=== PATIENT | female | born 1955 | race Caucasian/White ===

== ENCOUNTER 2016-09-28 14:38 | Inpatient (IN) | payer OTHER ==
[~2016-09-28] VITALS: Ht 154.9 cm; Wt 97.5 kg
[~2016-09-28 14:38] MED LIST: CLONAZEPAM1 M1 PO; DICLOFENAC50 MG PO; EFFEXOR XR150 M1 PO; FOL1 PO; LOP50 PO; METHOTREXATE2.5 PO; NEURONTIN600 M PO; NUVIGIL250 MG PO; PER5 PO; PRE3 PO; SAVELLA TITRATI PO; SOM350; ZOC20 PO
[2016-09-28 15:40] LABS: BASOPHIL % 0.7 % (0-2); PLATELET COUNT 283 x10^3mcL (130-400)
[2016-09-28 15:44] LABS: CALCIUM 8.7 mg/dL (8.5-10.1); CARBON DIOXIDE 30.8 mmol/L (21-32); CHLORIDE SERUM 106 mmol/L (98-107); CREATININE SERUM 0.9 mg/dL (0.6-1.0); GFR1 > 60 mL/min; GLUCOSE SERUM 112 mg/dL (74-106); SODIUM SERUM 142 mmol/L (136-145)
[2016-09-28 15:47] LABS: RED CELL DISTRIBUTION WIDTH 14.6 % (11.5-14.5)
[2016-09-28 15:50] LABS: ALKALINE PHOSPHATASE 134 U/L (46-116); ALT/SGPT 28 U/L (14-59); AST/SGOT 21 U/L (15-37); BILIRUBIN TOTAL 0.2 mg/dL (0.20-1.00); MAGNESIUM 1.9 mg/dL (1.8-2.4); TOTAL PROTEIN, SERUM 6.6 g/dL (6.4-8.2)
[2016-09-28 15:54] LABS: ALBUMIN 3.2 g/dL (3.4-5.0)
[2016-09-28 16:18] LABS: microscopic required? YES; urine erythrocyte TRACE (NEGATIVE)
[2016-09-28 16:27] LABS: AMPHETAMINE QUAL UR NONE DETECTED (NEG <=1000)
[2016-09-28] MEDS ORDERED: SEROQUEL100 MG PO (16:54)
[2016-09-28] MEDS ORDERED: SAVELLA50 M1 PO (16:55)
[2016-09-28] MEDS ORDERED: GOOD SENSE OMEP20 MG PO (16:57)
[2016-09-28] MEDS ORDERED: IBUPROFEN400 MG PO (16:59)
[2016-09-28] MEDS ORDERED: SYNTHROID0.05 MG PO (17:00)
[2016-09-28] MEDS ORDERED: ZANAFLEX4 MG PO (17:00)
[2016-09-28] MEDS ORDERED: AMBIEN10 MG PO (17:01)
[2016-09-28] MEDS ORDERED: VENTOLIN H0.09 MG/A1 INH (17:02)
[2016-09-28 17:35] LABS: FREE T4 0.78 ng/dL (0.76-1.46); FREE THYROXINE INDEX 2.3 ug/dL (1.4-4.5); T4(THYROXINE) 6.1 ug/dL (4.7-13.3)
[2016-09-28 17:36] LABS: T3 TOTAL 0.97 ng/mL
[2016-09-28 17:38] LABS: CHOLESTEROL/HDL RATIO 4.4
[2016-09-28] MEDS ORDERED: GABAPENTIN100 M2 (18:41)
[2016-09-28] MEDS ORDERED: PERCOCET1 TA5 (18:42)
[2016-09-28] MEDS ORDERED: PHARMASSURE FO0.4 MG (18:42)
[2016-09-28] MEDS ORDERED: CLONAZEPAM0.5 MG (18:42)
[2016-09-28 18:45] VITALS: BP 155/93
[2016-09-28 19:59] VITALS: BP 146/102
[2016-09-28 23:31] VITALS: BP 105/34
[2016-09-29 03:18] VITALS: BP 128/103
[2016-09-29 05:27] LABS: BASOPHIL % 0.7 % (0-2); PLATELET COUNT 247 x10^3mcL (130-400)
[2016-09-29 05:30] LABS: RED CELL DISTRIBUTION WIDTH 14.8 % (11.5-14.5)
[2016-09-29 06:08] LABS: CALCIUM 8.3 mg/dL (8.5-10.1); CARBON DIOXIDE 28.8 mmol/L (21-32); CHLORIDE SERUM 106 mmol/L (98-107); CREATININE SERUM 0.9 mg/dL (0.6-1.0); GFR1 > 60 mL/min; GLUCOSE SERUM 90 mg/dL (74-106); PHOSPHOROUS 3.4 mg/dL (2.5-4.9); POTASSIUM SERUM 3.7 mmol/L (3.5-5.1); SODIUM SERUM 142 mmol/L (136-145)
[2016-09-29 07:30] VITALS: BP 156/94
[2016-09-29 11:30] VITALS: BP 125/49
[2016-09-29 15:30] VITALS: BP 98/50
[2016-09-29 19:20] VITALS: BP 99/67
[2016-09-29 23:14] VITALS: BP 138/70
== END 2016-09-30 01:13 | disposition left against medical advice (07) | DRG 917 ==
LOC: ED 14:38 → DU 16:43 → ED 16:43 → IC 16:44
PROVIDERS: Emergency Medicine; ADMIT Family Medicine
DX: T42.4X2A Poisoning by benzodiazepines, intentional self-harm, initial encounter (principal); G92 Toxic encephalopathy; Z68.41 Body mass index [BMI] 40.0-44.9, adult; E11.65 Type 2 diabetes mellitus with hyperglycemia; I10 Essential (primary) hypertension; J44.9 Chronic obstructive pulmonary disease, unspecified; M06.9 Rheumatoid arthritis, unspecified; M79.7 Fibromyalgia; G89.4 Chronic pain syndrome; F32.9 Major depressive disorder, single episode, unspecified; F41.9 Anxiety disorder, unspecified; E03.9 Hypothyroidism, unspecified; E78.5 Hyperlipidemia, unspecified; E66.01 Morbid (severe) obesity due to excess calories; Z89.421 Acquired absence of other right toe(s); Z79.891 Long term (current) use of opiate analgesic; Z87.891 Personal history of nicotine dependence; Y92.009 Unspecified place in unspecified non-institutional (private) residence as the place of occurrence of the external cause; Z79.84 Long term (current) use of oral hypoglycemic drugs; Z79.1 Long term (current) use of non-steroidal anti-inflammatories (NSAID); Z91.81 History of falling; Z86.73 Personal history of transient ischemic attack (TIA), and cerebral infarction without residual deficits
CPT/HCPCS: 80307; 82962; 83880; 84439; G0480; J0696; J2270; J2405; J7030; Q0092

== ENCOUNTER 2017-08-04 07:21 | Emergency (ER) | payer OTHER ==
[~2017-08-04] VITALS: Ht 154.9 cm; Wt 98.9 kg
[~2017-08-04 07:21] MED LIST changes: +AMBIEN10 MG PO; +CLONAZEPAM0.5 MG; +GABAPENTIN100 M2; +GOOD SENSE OMEP20 MG PO; +IBUPROFEN400 MG PO; +PERCOCET1 TA5; +PHARMASSURE FO0.4 MG; +SAVELLA50 M1 PO; +SEROQUEL100 MG PO; +SYNTHROID0.05 MG PO; +VENTOLIN H0.09 MG/A1 INH; +ZANAFLEX4 MG PO
[2017-08-04 07:28] VITALS: BP 121/86; Ht 154.9 cm; Wt 98.9 kg
== END 2017-08-04 09:00 | disposition home or self-care (01) ==
LOC: ED 07:21
DX: S63.501A Unspecified sprain of right wrist, initial encounter (principal); Z86.73 Personal history of transient ischemic attack (TIA), and cerebral infarction without residual deficits; Z88.2 Allergy status to sulfonamides; W22.03XA Walked into furniture, initial encounter; Y93.89 Activity, other specified; Y92.89 Other specified places as the place of occurrence of the external cause; Y99.8 Other external cause status
CPT/HCPCS: A4570; Q0092

== ENCOUNTER 2017-10-09 16:31 | Emergency (ER) | payer OTHER ==
[~2017-10-09] VITALS: Ht 160 cm; Wt 97.1 kg
[2017-10-09 17:18] LABS: CALCIUM 8.4 mg/dL (8.5-10.1); CARBON DIOXIDE 33.7 mmol/L (21-32); CHLORIDE SERUM 104 mmol/L (98-107); CREATININE SERUM 0.9 mg/dL (0.6-1.0); GFR1 > 60 mL/min; GLUCOSE SERUM 91 mg/dL (74-106); POTASSIUM SERUM 3.7 mmol/L (3.5-5.1); SODIUM SERUM 141 mmol/L (136-145)
[2017-10-09 17:24] LABS: ALBUMIN 3.5 g/dL (3.4-5.0); ALKALINE PHOSPHATASE 137 U/L (46-116); ALT/SGPT 24 U/L (14-59); AST/SGOT 17 U/L (15-37); BILIRUBIN TOTAL 0.2 mg/dL (0.20-1.00); TOTAL PROTEIN, SERUM 7.1 g/dL (6.4-8.2)
[2017-10-09 17:26] LABS: BASOPHIL % 0.4 % (0-2); PLATELET COUNT 300 x10^3mcL (130-400)
[2017-10-09 17:28] LABS: AMPHETAMINE QUAL UR NONE DETECTED (NEG <=1000)
[2017-10-09 18:20] VITALS: BP 102/44
== END 2017-10-09 18:20 | disposition home or self-care (01) ==
LOC: ED 16:31
PROVIDERS: Emergency Medicine
DX: R51 Headache (principal); K21.9 Gastro-esophageal reflux disease without esophagitis; Z88.2 Allergy status to sulfonamides; Z88.8 Allergy status to other drugs, medicaments and biological substances
CPT/HCPCS: 36415; G0480; J1885

== ENCOUNTER 2019-03-30 10:39 | Observation (INO) | payer OTHER ==
[~2019-03-30] VITALS: Ht 154.9 cm; Wt 102.5 kg
[2019-03-30 11:01] VITALS: BP 130/83
[2019-03-30 12:59] VITALS: BP 130/83
[2019-03-30] MEDS ORDERED: CATAPRES0.1 MG PO (15:16)
[2019-03-30] MEDS ORDERED: FLUOXETINE40 MG PO (15:17)
[2019-03-30] MEDS ORDERED: PROAIR HFA8.5 GM IH (15:18)
[2019-03-30] MEDS ORDERED: FLOVENT DI100 MCG/A1 INH (15:18)
[2019-03-30 20:21] VITALS: BP 140/90
[2019-03-31 04:36] VITALS: BP 101/44
[2019-03-31 06:10] LABS: PLATELET COUNT 269 x10^3mcL (130-400)
[2019-03-31 06:18] LABS: CALCIUM 7.5 mg/dL (8.5-10.1); CARBON DIOXIDE 29.4 mmol/L (21-32); POTASSIUM SERUM 5.5 mmol/L (3.5-5.1)
[2019-03-31 06:51] LABS: BASOPHIL % 0 % (0-2); RED CELL DISTRIBUTION WIDTH 18.8 % (11.5-14.5)
[2019-03-31 08:13] VITALS: BP 101/42
[2019-03-31 12:52] LABS: rbc morphology (normal/abnorm) ABNORMAL (NORMAL)
== END 2019-03-31 16:02 | disposition home or self-care (01) | DRG 470 ==
LOC: OR 10:39 → MU 18:34
PROVIDERS: ADMIT Orthopaedic Surgery
PROC: 0SRD0J9 Replacement of Left Knee Joint with Synthetic Substitute, Cemented, Open Approach (ICD-10-PCS; principal; 2019-03-30 13:15)
DX: M17.12 Unilateral primary osteoarthritis, left knee (principal); J44.9 Chronic obstructive pulmonary disease, unspecified; I10 Essential (primary) hypertension; E03.9 Hypothyroidism, unspecified; F41.9 Anxiety disorder, unspecified; E66.9 Obesity, unspecified
CPT/HCPCS: 90732; 97116-GP; 97530-GP; C1713; C1776; G0378; J0690; J1170; J1885; J2175; J2250; J2270; J2310; J2405; J2704; J3010; J3490; J7030; J7120; Q0092

== ENCOUNTER 2019-06-24 08:48 | Emergency (ER) | payer OTHER ==
[~2019-06-24] VITALS: Ht 154.9 cm; Wt 102.5 kg
[~2019-06-24 08:48] MED LIST changes: +CATAPRES0.1 MG PO; +FLOVENT DI100 MCG/A1 INH; +FLUOXETINE40 MG PO; +PROAIR HFA8.5 GM IH
[2019-06-24 08:50] VITALS: Ht 154.9 cm; Wt 102.5 kg
[2019-06-24 10:20] VITALS: BP 125/50
== END 2019-06-24 10:20 | disposition home or self-care (01) ==
LOC: ED 08:48
DX: J06.9 Acute upper respiratory infection, unspecified (principal); E03.9 Hypothyroidism, unspecified; K21.9 Gastro-esophageal reflux disease without esophagitis; Z88.2 Allergy status to sulfonamides; Z91.040 Latex allergy status; Z86.73 Personal history of transient ischemic attack (TIA), and cerebral infarction without residual deficits
CPT/HCPCS: J7512; Q0092

== ENCOUNTER 2020-02-02 09:58 | Emergency (ER) | payer OTHER ==
[~2020-02-02] VITALS: Ht 154.9 cm; Wt 107.5 kg
[2020-02-02 10:10] VITALS: Ht 154.9 cm; Wt 107.5 kg
[2020-02-02 12:03] VITALS: BP 115/82
== END 2020-02-02 12:03 | disposition home or self-care (01) ==
LOC: ED 09:58
DX: N39.0 Urinary tract infection, site not specified (principal); R11.0 Nausea; J44.9 Chronic obstructive pulmonary disease, unspecified; K21.9 Gastro-esophageal reflux disease without esophagitis; E03.9 Hypothyroidism, unspecified; Z88.2 Allergy status to sulfonamides
CPT/HCPCS: J1885